=== PATIENT | male | born 1960 | race Caucasian/White ===

== ENCOUNTER 2020-10-23 05:11 | Day surgery (SDC) | payer OTHER ==
[2020-10-23] MEDS ORDERED: LACTATED RINGERS 1,000 ML ONE (06:41)
[2020-10-23] MEDS ORDERED: PROPOFOL 200 MG/20 ML VIAL IV ONE (07:00)
[2020-10-23] MEDS ORDERED: LIDOCAINE 1% 10 ML VIAL INJ ONE (07:00)
[2020-10-23] MEDS ORDERED: LACTATED RINGERS 1,000 ML IVS ONE (07:45)
[2020-10-23 09:42] VITALS: BP 162/99; TEMP 97.2; O2SAT 98
--- NOTE | 2020-10-23 10:23 | OP ---
DATE OF PROCEDURE: 10/23/20 PREOPERATIVE DIAGNOSIS: 1. Anemia. POSTOPERATIVE DIAGNOSIS: 1. Single small polyp at 20 cm. PROCEDURE: 1. Colonoscopy with biopsy. SURGEON: Yury Vásquez MD ANESTHESIA: General. FINDINGS: As describes. COMPLICATIONS: None. ESTIMATED BLOOD LOSS: None. INDICATION: As stated. PROCEDURE: Digital rectal exam was normal. The colonoscope was inserted and advanced all the way to the cecum identified by the appendiceal orifice. The ileocecal valve appeared normal. Upon withdrawal, there was an adequate prep. The patient was concerned he did not prep, but he was, there was just some bilious liquid we were able to irrigate adequately. Upon withdrawal, the mucosal surfaces appeared normal. There were no significant polyps until we got to about 20 cm and identified a 2.5 mm polyp that was completely excised. Retroflexion of the rectum was normal. There were small hemorrhoids, non- thrombosed. No source of anemia in this case. The patient tolerated the procedure and was taken to Recovery to be discharged. #[id number] cc: Ravin Acosta MD [facility]
== END 2020-10-23 09:35 | disposition home or self-care (01) ==
LOC: AMB 05:11
PROVIDERS: ATTEND Surgery
DX: D64.9 Anemia, unspecified (principal); D12.6 Benign neoplasm of colon, unspecified; K64.8 Other hemorrhoids; K59.00 Constipation, unspecified; I10 Essential (primary) hypertension; Z79.82 Long term (current) use of aspirin; Z79.899 Other long term (current) drug therapy
CPT/HCPCS: 00811; 45380; J3490; J7120